=== PATIENT | female | born 1930 | race Caucasian/White ===

== ENCOUNTER → 2018-03-07 | Day surgery (SDC) | payer MEDICARE, BC ==
[~2018-03-07] MED LIST: BUPIVACAINE HCL 0.25% MPF 30 ML SOL INFIL ONE
[2018-03-07] MEDS: DEXAMETHASONE SOD PHOS PF 10 MG/ML SOL IJ ONE ×2 (11:02→11:12)
[2018-03-07 11:28] VITALS: BP 121/79; PULSE 68; RESP 20; TEMP 97.2; O2SAT 96
== END | disposition home or self-care (01) | DRG 552 ==
LOC: SURG 09:38
PROVIDERS: ATTEND Nurse Anesthetist, Certified Registered
DX: M99.53 Intervertebral disc stenosis of neural canal of lumbar region (principal)
CPT/HCPCS: J1100

== ENCOUNTER 2018-06-07 16:25 | Observation (INO) | payer MEDICARE, BC ==
[2018-06-07] MEDS: SODIUM CHLORIDE 0.9% FLUSH 10 ML SOL IV SCH ×2 (17:40→23:47)
[2018-06-07 17:44] LABS: INR 3.14 (0.86-1.12)
[2018-06-07] MEDS ORDERED: Non-Formulary Medication MISC (Albuterol Sulfate [Albuterol *(Proair)(Ventolin)(Proventi IH PRN (18:45)
[2018-06-07] MEDS: SODIUM CHLORIDE 0.9% 1000ML 1,000 ML IV SCH (19:44)
[2018-06-07] MEDS ORDERED: WARFARIN SODIUM 1 MG TAB PO SCH (19:45)
[2018-06-07] MEDS ORDERED: METOPROLOL SUCCINATE 25 MG TAB.ER.24H PO SCH (21:00)
[2018-06-07] MEDS: Non-Formulary Medication MISC (Budesonide/Formoterol 160/4.5 [Budesonide/Formot 160/4.5 INH SCH (21:58)
[2018-06-07] MEDS ORDERED: METOPROLOL SUCCINATE 50 MG ER TAB ONE (22:02)
[2018-06-08] MEDS: SODIUM CHLORIDE 0.9% 1000ML 1,000 ML IV SCH (03:38)
[2018-06-08] MEDS ORDERED: LEVOTHYROXINE SODIUM 50 MCG TAB PO SCH (07:00)
[2018-06-08 07:20] LABS: BASOPHILS % (AUTO) 2 % (0-3); EOSINOPHILS % (AUTO) 3 % (0-9); HEMATOCRIT 44 % (35-47); LYMPHOCYTES % (AUTO) 38.5 % (10-50); MEAN CORPUSCULAR HEMOGLOBIN 28.1 pg (27.0-32.0); MEAN CORPUSCULAR HGB CONC 31.9 gm/dl (32.0-36.0); MEAN CORPUSCULAR VOLUME 88 fL (81-99); NEUTROPHILS % (AUTO) 48.3 % (37-80)
[2018-06-08] MEDS: SODIUM CHLORIDE 0.9% FLUSH 10 ML SOL IV SCH ×2 (07:30→16:55)
[2018-06-08 07:34] LABS: ALBUMIN 2.7 gm/dl (3.4-5.0); CALCIUM 7.7 mg/dl (8.5-10.1); CARBON DIOXIDE 29.9 mEq/L (21-32); CREATININE 1.15 mg/dl (0.60-1.00); POTASSIUM 4.2 mMol/L (3.5-5.1); TOTAL PROTEIN 5.3 gm/dl (6.4-8.2)
[2018-06-08 07:46] LABS: INR 3.07 (0.86-1.12)
[2018-06-08] MEDS ORDERED: ASPIRIN 81 MG CHEWABLE CTB PO SCH ×2 (09:00)
[2018-06-08] MEDS: Non-Formulary Medication MISC (Budesonide/Formoterol 160/4.5 [Budesonide/Formot 160/4.5 INH SCH (09:57)
[2018-06-08 17:16] VITALS: BP 131/87; PULSE 84; RESP 16; TEMP 97.7; O2SAT 98
[2018-06-08] MEDS ORDERED: METOPROLOL SUCCINATE 50 MG TER PO SCH (21:00)
== END 2018-06-08 18:05 | disposition home or self-care (01) | DRG 948 ==
LOC: ACUTE CARE 16:30
PROVIDERS: ADMIT Family Medicine; ATTEND Family Medicine
DX: R53.1 Weakness (principal); I48.91 Unspecified atrial fibrillation; R91.1 Solitary pulmonary nodule; R42 Dizziness and giddiness; R06.2 Wheezing; Z79.01 Long term (current) use of anticoagulants
CPT/HCPCS: 36415; 71250; 80053; 83880; 84484; 85025; 85610; 93012; A9270-GY